=== PATIENT | female | born 1985 | race Caucasian/White ===

== ENCOUNTER 2017-01-11 20:27 | Emergency (ER) | payer MEDICAID ==
[~2017-01-11] VITALS: Ht 157.5 cm; Wt 67.0 kg
[2017-01-11 21:07] VITALS: Ht 157.5 cm; Wt 67.0 kg
[2017-01-11] MEDS ORDERED: CLIN-73 PO (23:42)
[2017-01-11] MEDS ORDERED: HYDR-906 PO (23:42)
[2017-01-11] MEDS ORDERED: IBUP-1542 PO (23:42)
--- NOTE | 2017-01-11 23:50 | ERD ---
ER Documentation Chief Complaint Date/Time DATE: 01/11/17 TIME: 23:46 Chief Complaint R BREAST PAIN AND SWELLING SINCE MONDAY +FEVER AND PAIN HPI 31-year-old female presents to emergency department for complaints of right breast pain and swelling started 3 days ago. Patient feels like a mass in the right breast area, right upper quadrant of the breast that started 3 days ago. Patient has been having fever at home and is complaining of pain throbbing pain , 8/10 scale, as was upon touching the area. Patient denies any purulent discharge coming from the nipple, denies any redness on the breast area. Patient denies taking any medications to help with symptoms. Patient denies any trauma in affected area. ROS All systems reviewed and are negative except as per history of present illness. Medications Home Meds Active Scripts Hydrocodone/Acetaminophen ([place] 5-325 Tablet) 1 Each Tablet, 1 TAB PO Q6H Y for SEVERE PAIN LEVEL 7-10, #20 TAB Prov:BERNADINE ECHEVARRIA NP 01/11/17 Ibuprofen* (Motrin*) 600 Mg Tab, 600 MG PO Q6H Y for PAIN AND OR ELEVATED TEMP, #30 TAB Prov:BERNADINE ECHEVARRIA NP 01/11/17 Clindamycin Hcl* (Clindamycin Hcl*) 300 Mg Capsule, 300 MG PO TID for 10 Days, CAP Prov:BERNADINE ECHEVARRIA NP 01/11/17 Allergies Allergies: Coded Allergies: No Known Allergy (Unverified Allergy, Unknown, 09/28/06) PMhx/Soc Medical and Surgical Hx: pt denies Medical Hx, pt denies Surgical Hx Hx Alcohol Use: No Hx Substance Use: No Hx Tobacco Use: No Smoking Status: Never smoker FmHx Family History: No coronary disease, No diabetes, No other Physical Exam Vitals Vital Signs Date Time Temp Pulse Resp B/P Pulse Ox O2 Delivery O2 Flow Rate FiO2 01/11/17 21:07 98.7 80 20 127/68 98 Physical Exam GENERAL: The patient is well developed and appropriate for usual state of health, in no apparent distress. CHEST: Clear to auscultation bilaterally. There are no rales, wheezes or rhonchi. Noted mass on the right upper quadrant of the right breast, 3 x 4 cm in size palpable, tender on palpation, no erythema noted, no nipple discharge, no induration noted no fluctuance. Left breast is normal. No palpable mass. No fluctuance noted. HEART: Regular rate and rhythm. No murmurs, clicks, rubs or gallops. No S3 or S4. ABDOMEN: Soft, nontender and nondistended. Good bowel sounds. No rebound or guarding. No gross peritonitis. No gross organomegaly or masses. No Bradshaw sign or McBurney point tenderness. BACK: No midline or flank tenderness. EXTREMITIES: Equal pulses bilaterally. There is no peripheral clubbing, cyanosis or edema. No focal swelling or erythema. Full range of motion. Grossly neurovascularly intact. NEURO: Alert and oriented. Cranial nerves 2-12 intact. Motor strength in all 4 extremities with 5/5 strength. Sensation grossly intact. Normal speech and gait. SKIN: There is no apparent rash or petechia. The skin is warm and dry. HEMATOLOGIC AND LYMPHATIC: There is no evidence of excessive bruising or lymphedema. No gross cervical, axillary, or inguinal lymphadenopathy. Procedures/MDM Medical decision making: Patient is a palpable right breast mass that is tender on the right upper quadrant of the right breast, this time, no symptoms of any abscess or mastitis, though since patient has been having fever, I discussed this case with my attending physician, Dr. Liu, we will cover patient with clindamycin in case there is a early infection starting. At this time, no abscess that can be drained. Patient was advised to see OB doctor/insulation board coater operator specialist for possible ultrasound for evaluation of the mass, unable to obtain ultrasound of the right at this time for lack of resources. At this time, no symptoms of sepsis, patient appears well and is hemodynamically stable. Prescription was given for clindamycin, ibuprofen and [place], is advised to return to emergency department for high fever, worsening pain redness swelling nipple discharge or any other worsening symptoms. Disposition: Home. Stable. Departure Diagnosis: Primary Impression: Breast mass Condition: Stable Patient Instructions: Breast Mass, Uncertain Cause Referrals: [facility] [id number] [address] ( DR[address] DWYER, [place] [address] [place] [address] [address] MONTES, [facility] [id number] [address] [facility], [place] [address] [address] PAYAN, [facility] [address] [facility] [place] [address] [facility] [address] [place] [address] [facility], [facility] [address] - [address] ALEJANDRE, [place] [facility], [place] [address] [address] MAHER, [place] [address] [facility]. [address], [place] [address] DR MORRIS, [facility] [address] [address] [place] [address] Additional Instructions: see [facility] specialist for breast lakes[place], mammogram, take meds as prescribed BERNADINE ECHEVARRIA NP Jan 11, 2017 23:50
== END 2017-01-12 12:46 | disposition home or self-care (01) ==
LOC: FTE 20:27
DX: N63.10 Unspecified lump in the right breast, unspecified quadrant (principal)
CPT/HCPCS: 99284